=== PATIENT | female | born 1965 | race Caucasian/White ===

== ENCOUNTER 2017-04-18 09:33 | Emergency (ER) | payer MEDICAID ==
[2017-04-18 11:24] VITALS: BP 158/89
== END 2017-04-18 11:24 | disposition home or self-care (01) ==
LOC: ED 09:33
DX: S92.512A Displaced fracture of proximal phalanx of left lesser toe(s), initial encounter for closed fracture (principal); X58.XXXA Exposure to other specified factors, initial encounter; Y93.89 Activity, other specified; Y92.89 Other specified places as the place of occurrence of the external cause; Y99.8 Other external cause status
CPT/HCPCS: J2001; Q0092

== ENCOUNTER 2018-01-03 20:05 | Emergency (ER) | payer MEDICAID ==
[~2018-01-03] VITALS: Ht 154.9 cm; Wt 122.5 kg
[2018-01-03 20:12] VITALS: Ht 154.9 cm; Wt 122.5 kg
[2018-01-04 00:34] VITALS: BP 133/75
== END 2018-01-04 00:34 | disposition home or self-care (01) ==
LOC: ED 20:05
DX: S09.90XA Unspecified injury of head, initial encounter (principal); S43.402A Unspecified sprain of left shoulder joint, initial encounter; S93.602A Unspecified sprain of left foot, initial encounter; W10.8XXA Fall (on) (from) other stairs and steps, initial encounter; Y93.89 Activity, other specified; Y92.89 Other specified places as the place of occurrence of the external cause; Y99.8 Other external cause status
CPT/HCPCS: 90715; J2270